=== PATIENT | female | born 1985 | race Caucasian/White ===

== ENCOUNTER 2022-11-09 10:58 | Emergency (ER) | payer BC, SELFPAY ==
[2022-11-09] VITALS (19 sets, daily range): BP systolic 131–159; BP diastolic 93–108; PULSE 55–82; RESP 11–27; TEMP 36.3; O2SAT 95–99
--- NOTE | 2022-11-09 11:02 | ECG_ITS ---
Measurements Intervals [place] Rate: 60 P: 5 MN: 148 QRS: 26 QRSD: 87 T: 29 QT: 416 QTc: 418 Interpretive Statements SINUS RHYTHM POOR R-WAVE PROGRESSION OTHERWISE UNREMARKABLE ECG NO PREVIOUS ECG AVAILABLE FOR COMPARISON Electronically Signed On 11-10-2022 7:39:06 CDT by Moo Vicente M.D.
[2022-11-09 11:43] LABS: Basophils Absolute Auto 0.03 K/mm3 (0.00-0.10); Basophils Percent Auto 0.3 % (0.0-1.0); Eosinophils Absolute Auto 0.12 K/mm3 (0.02-0.50); Eosinophils Percent Auto 1.4 % (1.0-6.0); Hematocrit 44.6 % (35.0-49.0); Hemoglobin 15.7 g/dL (12.0-15.0); Immature Granulocyte Absolute 0.03 K/mm3 (0.00-0.00); Immature Granulocyte Percent A 0.3 % (0.0-0.0); Lymphocytes Percent Auto 19.3 % (18.0-42.0); Mean Corpuscular HGB Conc 35.2 g/dL (32.0-36.0); Mean Corpuscular Hemoglobin 32.2 pg (27.0-31.0); Mean Corpuscular Volume 91.6 fL (78.0-102.0); Mean Platelet Volume 9.9 fl (9.2-11.8); Monocytes Absolute Auto 0.45 K/mm3 (0.10-0.90); Monocytes Percent Auto 5.1 % (2.0-11.0); Neutrophils Absolute Auto 6.5 K/mm3 (1.7-7.2); Neutrophils Percent Auto 73.6 % (50.0-70.0); Platelet Count Result 212 K/mm3 (150-420); Red Blood Count 4.87 M/mm3 (4.20-5.40); Red Cell Distribution Width 12.6 % (11.6-14.4); White Blood Count 8.8 K/mm3 (4.8-10.8)
--- NOTE | 2022-11-09 11:53 | PC.NURSE ---
PT IS LYING ON STRETCHER WITH AT THE BEDSIDE. NAD NOTED. VSS PER MONITOR. PT IS AWAITING RESULTS AT THIS TIME. WILL CONTINUE TO MONITOR.
--- NOTE | 2022-11-09 12:04 | PC.NURSE ---
PT IS CURRENTLY SPEAKING WITH PMD OFFICE AT THIS TIME ON PHONE. NAD NOTED. WILL CONTINUE TO MONITOR.
[2022-11-09 12:05] LABS: Alanine Aminotransferase 22 U/L (14-59); Alkaline Phosphatase 86 U/L (46-116); Anion Gap 9 mmol/L (8-16); Aspartate Amino Transferase 15 U/L (15-37); Bilirubin,Total 0.3 mg/dL (0.00-1.00); Blood Urea Nitrogen 12 mg/dL (7-18); Calcium 8.9 mg/dL (8.5-10.1); Carbon Dioxide 28 mmol/L (21-32); Chloride 105 mmol/L (98-108); Estimated Glomerular Filt Rate > 60; Glucose 85 mg/dL (70-99); Osmolality Calculated 292 mOsm/kg (285-295); Potassium 3.8 mmol/L (3.5-5.1); Sodium 142 mmol/L (136-145); Thyroid Stimulating Hormone 1.08 uIU/mL (0.36-3.74); Total Protein 7.3 g/dL (6.4-8.2)
[2022-11-09 12:23] LABS: Troponin I 4.1 ng/L (0.00-60.4)
--- NOTE | 2022-11-09 12:33 | ED.DIZZY ---
HPI - Dizziness General Chief Complaint: Dizziness Stated Complaint: DIZZINESS Time Seen by Provider: 11/09/22 11:07 Source: patient and family Mode of arrival: ambulatory History of Present Illness HPI Narrative: This is a 37-year-old female with no significant past medical history presents with some episodes of dizziness and chest discomfort and appears anxious with her blood pressure being a little bit on the higher side initially 150/96 when she 1st presented the ER. Otherwise patient does appear anxious no shortness of breath no abdominal pain does have some sinus pressure with no fever chills, the patient states that she was seen at another emergency department and diagnosed her with sinusitis. MD elicited complaint: dizziness Onset (ago): week(s) Timing: gradual onset Severity: mild Related Data Allergies Allergy/AdvReac Type Severity Reaction Status Date / Time No Known Allergies Allergy Verified 11/09/22 11:07 Review of Systems Review of Systems: All systems reviewed & are unremarkable except as noted in HPI and below PMFSH Past Medical History Medical History Patient denies medical problems Exam Const: General: healthy appearing Nutritional Appearance: well nourished Orientation/consciousness: patient oriented x3 HENMT: Head: normal to inspection Ears: TM abnormal ( dullness bilaterally) Face and sinus: sinus tenderness Mouth: Yes Normal oral and palatal mucosa present Eyes: Conjunctivae: conjunctivae normal Pupils: Equal, round and reactive pupils present EOM: EOMs intact bilaterally Neck: Neck: normal visual inspection and no lymphadenopathy Chest: Chest palpation & inspection: normal inspection of the chest Resp: Effort & Inspection: normal respiratory effort Auscultation: clear to auscultation bilaterally Cardio: Rate: regular rate Rhythm: regular rhythm GI: Auscultation: normal bowel sounds : General: Yes bladder normal to palpation Urinary Catheter: Urinary Catheter: patent and draining Back/Spine/Pelvis: Back: no CVA tenderness Skin: General skin exam: normal color Rashes: no rashes Wounds: no wounds Neuro: General: patient oriented x3, moves all extremities and no focal motor deficits Cranial nerves: Yes Nystagmus not present Speech: normal speech Gait exam (Neuro): Normal gait present Extrem: General: normal to inspection and no clubbing, cyanosis or edema Psych: Mental Status: mental status grossly normal Affect: Anxious affect present Course Course Emergency Course: reviewed EKG with patient and family which showed normal sinus rhythm, reviewed blood work with patient and family which had normal TSH normal kidney function and normal troponin. Discussed in detail that the need to have close follow-up with primary to assess ongoing blood pressure issues and discussed also with the patient given her young Age female may need to have a renal ultrasound of her kidneys. Patient continues to be concerned and anxious about her blood pressure and gave the patient and family reassurance that all the testing done here today in the emergency department was within normal limits and advised close follow-up with her primary. Will send medication to her pharmacy that can be used for her blood pressure and follow-up with primary within 1 week. Vital Signs Vital signs: Vital Signs Temperature 36.3 C L 11/09/22 10:59 Pulse Rate 72 11/09/22 10:59 Respiratory Rate 18 11/09/22 10:59 Blood Pressure 150/96 H 11/09/22 10:59 Pulse Oximetry 98 11/09/22 10:59 Oxygen Delivery Room Air 11/09/22 10:59 Temperature 36.3 C L 11/09/22 10:59 Pulse Rate 58 L 11/09/22 12:16 Respiratory Rate 27 H 11/09/22 12:15 Blood Pressure 135/96 H 11/09/22 12:16 Pulse Oximetry 97 11/09/22 12:16 Oxygen Delivery Room Air 11/09/22 10:59 MDM - Dizziness Lab Data 11/09/22 11:36 11/09/22 11:37
== END 2022-11-09 12:45 | disposition home or self-care (01) ==
PROVIDERS: Emergency Provider Emergency Medicine; PCP Physician Assistant
DX: R03.0 Elevated blood-pressure reading, without diagnosis of hypertension (principal); R42 Dizziness and giddiness
CPT/HCPCS: 36415; 80053; 84443; 84484; 85025; 93005; 99284

== ENCOUNTER 2024-08-01 10:28 | Emergency (ER) | payer BC, SELFPAY ==
[2024-08-01 10:35] VITALS: BP 135/92; PULSE 80; RESP 20; TEMP 36.6; O2SAT 99
[2024-08-01 11:17] LABS: EDCOVIDSCREEN Positive (Negative); EDINFLUASCREEN Negative (Negative); EDINFLUBSCREEN Negative (Negative); EDSTREPNEGPOS1 Negative (Negative)
--- NOTE | 2024-08-01 11:35 | ED.URI ---
HPI - URI/Sore Throat General Chief Complaint: Upper Respiratory Infection Stated Complaint: Body Aches/Chest Congestion Time Seen by Provider: 08/01/24 11:35 Source: patient and RN notes reviewed Mode of arrival: ambulatory Limitations: no limitations History of Present Illness HPI Narrative: 39-year-old female presented for complaint of headache, body aches, sinus pressure/congestion, sore throat, cough, fever/chills. onset 2 days. Denies sob, wheezing, n/v/d. Took ibuprofen. MD elicited complaint: cough Related Data Allergies Allergy/AdvReac Type Severity Reaction Status Date / Time No Known Allergies Allergy Verified 11/09/22 11:07 Review of Systems Review of Systems: CONSTITUTIONAL: Endorses malaise, chills, sweats, fever EYES: Denies visual changes, redness, or discharge ENT: Reports rhinorrhea, congestion, sinus pain, otalgia, sore throat CARDIOVASCULAR: Denies chest pain, palpitations, edema RESPIRATORY: Reports cough, post nasal drainage. Denies dyspnea GASTROINTESTINAL: Denies abdominal pain, nausea, vomiting, diarrhea SKIN: Denies rash or itching MUSCULOSKELETAL: Endorses myalgia NEUROLOGIC: Endorses headache PMFSH Past Medical History Medical History Patient denies medical problems Social History Social History (Updated 08/01/24 @ 11:40 by Umu Mckeon APRN) Smoking packs per day: 1 Smoking cigarettes per day: 20.0 Smoking status: Current every day smoker Tobacco type: cigarettes Exam Narrative: GENERAL: Ill-appearing, nontoxic no acute distress. EYES: PERRLA, conjunctivae clear ENT: Mucous membranes moist. TM pearly munoz with dull light reflex bilaterally; no tragal tenderness. Oropharynx erythematous without lesions or exudate, no drooling, no hoarseness, no trismus, uvula midline. No tripod positioning, muffled voice, soft palate or pharyngeal wall bulging CHEST: Clear to auscultation, breath sounds equal. No wheezing, rhonchi, rales, or stridor. No respiratory distress, speaks in full sentences. HEART: Regular rate and rhythm. No murmur heard. SKIN: Warm, dry, no rash. NEURO: Alert and oriented x3. PSYCH: Normal mood and affect Course Course Emergency Course: Patient is aware of diagnosis, understands and agrees to treatment plan. Anticipatory guidance given. Patient agrees to follow-up as directed and is aware of reasons to seek care at the emergency department. Portions of this record may have been created with voice recognition software Level of Care: Express Care Visit Vital Signs Vital signs: Vital Signs Temperature 98 F 08/01/24 10:35 Pulse Rate 80 08/01/24 10:35 Respiratory Rate 20 08/01/24 10:35 Blood Pressure 135/92 H 08/01/24 10:35 Pulse Oximetry 99 08/01/24 10:35 Temperature 98 F 08/01/24 10:35 Pulse Rate 80 08/01/24 10:35 Respiratory Rate 20 08/01/24 10:35 Blood Pressure 135/92 H 08/01/24 10:35 Pulse Oximetry 99 08/01/24 10:35 reviewed MDM - URI/Sore Throat MDM Narrative Medical decision making narrative: positive COVID. Negative flu and strep. Discussed physical exam findings. Advised supportive measures and signs/symptoms to go to the ER. Pt is appropriate for outpt treatment and f/u. Differential Diagnosis Differential diagnosis: Likely upper respiratory infection, otitis media, sinusitis, viral infection, influenza and pharyngitis Lab Data Labs: Lab Results 08/01/24 Range/Units 11:14 POC Influenza A Ag Negative (Negative) POC Influenza B Ag Negative (Negative) POC SARS CoV-2 Ag Positive (Negative) POC Grp A Strep Screen Negative (Negative) Discharge Plan Discharge Clinical Impression: COVID-19 Patient Disposition: Home, Self-Care Condition: Stable Instructions: Antibiotic Form, COVID-19 (Coronavirus Disease 2019) (ED) Additional Instructions: Your rapid COVID test was positive today. The following updated recommendations have been made by the CDC and local Health Departments, regarding COVID-19: - When people get sick with a respiratory virus, they stay home and away from others. - Return to normal activities when, for at least 24 hours, symptoms are improving overall, and if a fever was present, it has been gone without use of a fever-reducing medication. - Once people resume normal activities, they are encouraged to take additional prevention strategies for the next 5 days to curb disease spread, such as taking more steps for chicken and fish cleaner air, enhancing hygiene practices, wearing a well-fitting mask, keeping a distance from others, and/or getting tested for respiratory viruses. - Enhanced precautions are especially important to protect those most at risk for severe illness, including those over 65 and people with weakened immune systems. - Follow with your employer for return to work restrictions. Rest, stay hydrated. Tylenol and ibuprofen every 8 hours as needed Flonase/nasal spray, Zyrtec, cough syrup cold/flu medications for symptoms as needed Follow up with your primary care provider, call to schedule an appointment. Go to the ER for worsening symptoms or concerns. Patient Language: Syriac Prescriptions: No Action hydrochlorothiazide 12.5 mg tablet 12.5 mg PO DAILY Qty: 10 0RF Follow-up/Referrals: Patel,AREN Terrell [Primary Care Provider] - Time of Disposition: 11:38
== END 2024-08-01 11:43 | disposition home or self-care (01) ==
PROVIDERS: Emergency Provider Nurse Practitioner Family; PCP Physician Assistant
DX: U07.1 COVID-19 (principal); F17.210 Nicotine dependence, cigarettes, uncomplicated
CPT/HCPCS: 87081; 87426; 87804; 87880; 99213; G0463